=== PATIENT | male | born 1940 | race Caucasian/White ===

== ENCOUNTER 2016-07-14 10:00 | Inpatient (IN) | payer MEDICARE, OTHER ==
[2016-07-14] MEDS ORDERED: ONDANSETRON 4 MG/2 ML VIAL IVP ONE (10:32)
--- NOTE | 2016-07-14 10:37 | EDPHY ---
H & P Stated Complaint: Scheduled for back surgery; this amorning has numbness/ tingling toes L>R Source: Patient, Old records - Personal History Current Tetanus Diphtheria and Acellular Pertussis (TDAP): Yes - Medical/Surgical History Other PMH: chronic back pain - Social History Smoking Status: Former smoker HPI/ROS: CHIEF COMPLAINT: Increasing back pain, lower extremity weakness and paresthesia HISTORY OF PRESENT ILLNESS: Patient complains of worsening low back pain and left lower extremity numbness and tingling. This started yesterday. This is an exacerbation of ongoing low back pain. He has had a history of lumbar radiculopathy on the L2-L3 level. This has been going on for awhile. He is scheduled for surgery on July [address] Muniz for laminectomy and fusion. He has had no saddle anesthesia. He has had no incontinence of bowel or bladder. No retention of bowel or bladder. No motor weakness of the lower extremities. No trauma or new injuries. This happened suddenly last night. It has been constant, severe pain. No position of comfort. Some improvement with his ongoing pain medication. No fever or chills. No recent illness. No recent spinal injections. No history of IV drug abuse. No other associated complaints or modifying factors. REVIEW OF SYSTEMS: Ten systems reviewed and are negative unless otherwise noted in the HPI PERTINENT MEDICAL HISTORY: EXAMINATION General Appearance: Alert, no distress Head: normocephalic, atraumatic Eyes: Pupils equal and round, no conjunctival pallor or injection ENT, Mouth: Mucous membranes moist Neck: Normal inspection, supple, non-tender Respiratory: Lungs are clear to auscultation. No wheezing, rhonchi or crackles. Cardiovascular: Regular rate and rhythm. No murmur. Pulses intact distally symmetrically. Gastrointestinal: Abdomen is soft and nontender Back: Tenderness of the lumbar vertebrae. Patient reports this is baseline. There is no crepitus, step-off or deformity. No tenderness of the cervical thoracic spine. There is a well-healed midline surgical incision lumbar region. Neurological: GCS 15. A&O, nonfocal, antalgic gait. Strength is 5/5 in the lower extremity joints. Strength is 4/5 in the left ankle. Normal proprioception of the great toes. Reports paresthesia of the dorsum of the left foot and of the lesser toes. Skin: Warm and dry, no rash no petechiae purpura. No ecchymosis. Extremities: Nontender, no pedal edema Psychiatric: Mood and affect normal DIFFERENTIAL DIAGNOSES: Including but not limited to lumbar radiculopathy, acute disc bulge, acute disc herniation, acute cord compression, cauda equina MDM: 10:25 a.m. Lumbar radiculopathy with acute sensory changes in the left lower extremity. He now has increasing paresthesia and intermittent anesthesia of the left lesser toes. He does have 4/5 strength in the left ankle, which is 5/5 on the right. MRI done on June 27. Laminectomy and fusion scheduled for July 25. 10:35 a.m. I discussed the case with Dr. Muniz. I informed the physician of the patient' s complaints and examination. Dr. Muniz has requested MRI of the lumbar spine without contrast. He would like to be contacted with results. No further recommendations at this time. 12:[address] Sosa of the MRI findings. There is a new disc extrusion in the left neural foramen as dictated. There is also a new synovial cyst on the right facet with some compression of the conus. These do clinically correlate with patient's symptoms. Dr. Penaloza as discussed the case with Dr. Muniz. Dr. Muniz has agreed to admit the patient for further care. Patient is admitted in stable condition, NPO. SUPERVISION: Patient was evaluated in conjunction with the supervising physician. Please see their note for details. (Yan Lewis) Constitutional: Initial Vital Signs Temperature (C) 36.7 C 07/14/16 10:00 Heart Rate 64 07/14/16 10:00 Respiratory Rate 18 07/14/16 10:00 Blood Pressure 143/97 H 07/14/16 10:00 O2 Sat (%) 93 07/14/16 10:00 O2 Delivery Mode Room Air Allergies/Adverse Reactions: codeine Allergy (Mild, Verified 07/14/16 10:07) nausea Home Medications: Medication Instructions Recorded Pravastatin Sodium [Pravachol] 80 mg PO HS 07/11/16 Aspirin [Aspirin 81mg (*)] 81 mg PO DAILY 07/14/16 [place]-3 Fatty Acids [Fish Oil 1000 1,000 mg PO DAILY 07/14/16 mg (*)] Medical Decision Making - Diagnostics Imaging Results: Imaging Impressions Lumbar Spine MRI 07/14/16 10:34 Impression: 1. Left posterior lateral disk extrusion extending superiorly into the neuroforamen at L1-L2 that may account for the patient's symptoms. 2. Disk bulges with facet hypertrophy and ligamentum flavum hypertrophy at L1 to , L2-L3, and L3-L4 as detailed above. 3. Development of small synovial cyst associated with the right facet at L1-L2 and also contributes to spinal stenosis with compression at the level of the conus. Findings discussed with Yan Lewis PAC at 12:14 hour, 07/14/2016. Other Provider: PHYSICIAN DOCUMENTATION: The patient was evaluated and managed by the Physician Traffic Chief and myself. I have reviewed the chart and agree with the findings and plan of care as documented. In addition, I examined the patient myself at 1140. History confirmed as worsening left leg numbness today. 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 Sensation intact but decreased in the left lateral foot, toes downgoing bilaterally. Discussed with Dr. Noah Muniz at 11:38 a.m. will look at the patient's MRI, the patient is informed that we are awaiting his neurosurgeons recommendations. 1220: Discussed with Dr. Muniz review the MRI, discussed with the patient. He is increasingly symptomatic and plan is to admit him for IV steroids and pain control, neurosurgical evaluation. Seen by Sabra VALLES and Dr. Muniz personally in the ED for admission. I am the secondary supervising physician. (Peter Penaloza) - Data Points Laboratory Results: Laboratory Results 07/14/16 10:47 07/14/16 10:47 07/14/16 07/14/16 07/14/16 10:47 10:47 10:47 WBC 3.75 10^3/uL L 10^3/uL (3.80-9.50) RBC 5.35 10^6/uL 10^6/uL (4.40-6.38) Hgb 15.8 g/dL g/dL (13.7-17.5) Hct 47.9 % % (40.0-51.0) MCV 89.5 fL fL (81.5-99.8) MCH 29.5 pg pg (27.9-34.1) MCHC 33.0 g/dL g/dL (32.4-36.7) RDW 13.0 % % (11.5-15.2) Plt Count 153 10^3/uL 10^3/uL (150-400) MPV 11.6 fL fL (8.7-11.7) Neut % (Auto) 55.5 % % (39.3-74.2) Lymph % (Auto) 30.9 % % (15.0-45.0) Kimball % (Auto) 9.6 % % (4.5-13.0) Eos % (Auto) 3.2 % % (0.6-7.6) Baso % (Auto) 0.8 % % (0.3-1.7) Nucleat RBC Rel Count 0.0 % % (0.0-0.2) Absolute Neuts (auto) 2.08 10^3/uL 10^3/uL (1.70-6.50) Absolute Lymphs (auto) 1.16 10^3/uL 10^3/uL (1.00-3.00) Absolute Monos (auto) 0.36 10^3/uL 10^3/uL (0.30-0.80) Absolute Eos (auto) 0.12 10^3/uL 10^3/uL (0.03-0.40) Absolute Basos (auto) 0.03 10^3/uL 10^3/uL (0.02-0.10) Absolute Nucleated RBC 0.00 10^3/uL 10^3/uL (0-0.01) Immature Gran % 0.0 % % (0.0-1.1) Immature Gran # 0.00 10^3/uL 10^3/uL (0.00-0.10) PT 13.9 SEC SEC (12.0-15.0) INR 1.08 (0.83-1.16) APTT 28.1 SEC SEC (23.0-38.0) Sodium 145 mEq/L H mEq/L (134-144) Potassium 4.2 mEq/L mEq/L (3.5-5.2) Chloride 108 mEq/L mEq/L (97-110) Carbon Dioxide 26 mEq/l mEq/l (22-31) Anion Gap 11 mEq/L mEq/L (8-16) BUN 17 mg/dL mg/dL (7-23) Creatinine 1.0 mg/dL mg/dL (0.7-1.3) Estimated GFR > 60 Glucose 85 mg/dL mg/dL (70-100) Calcium 10.3 mg/dL mg/dL (8.5-10.4) Total Bilirubin 1.1 mg/dL mg/dL (0.1-1.4) AST 28 IU/L IU/L (17-59) ALT 41 IU/L IU/L (21-72) Alkaline Phosphatase 67 IU/L IU/L (38-126) Total Protein 6.5 g/dL g/dL (6.3-8.2) Albumin 4.1 g/dL g/dL (3.5-5.0) Medications Given: Discontinued Medications Dexamethasone (Decadron Injection) 10 mg IVP EDNOW ONE Stop: 07/14/16 12:21 Last Admin: 07/14/16 12:47 Dose: 10 mg Hydromorphone HCl (Dilaudid) 0.5 mg IVP EDNOW ONE Stop: 07/14/16 11:22 Last Admin: 07/14/16 11:23 Dose: 0.5 mg Hydromorphone HCl (Dilaudid) 0.5 mg IVP EDNOW ONE Stop: 07/14/16 11:53 Last Admin: 07/14/16 11:53 Dose: 0.5 mg Hydromorphone HCl (Dilaudid) 0.5 mg IVP EDNOW ONE Stop: 07/14/16 12:20 Last Admin: 07/14/16 12:47 Dose: 0.5 mg Morphine Sulfate (Morphine) 4 mg IVP EDNOW ONE Stop: 07/14/16 10:33 Last Admin: 07/14/16 10:48 Dose: 4 mg Ondansetron HCl (Zofran) 4 mg IVP EDNOW ONE Stop: 07/14/16 10:33 Last Admin: 07/14/16 10:48 Dose: 4 mg Departure - Departure Disposition: [facility] Acute Clinical Impression: Lumbar radicular pain, L1-L2 disc lateral herniation Condition: Good
[2016-07-14] MEDS ORDERED: HYDROmorphONE/DILAUDID 1 MG/ML SYR ONE (11:05)
[2016-07-14] MEDS ORDERED: HYDROmorphONE/DILAUDID 1 MG/ML SYR IVP ONE ×3 (11:21→12:19)
[2016-07-14] MEDS ORDERED: DEXAMETHASONE 10 MG/ML VIAL IVP ONE (12:20)
[2016-07-14] MEDS ORDERED: HYDROmorphONE/DILAUDID 6 MG/30 ML PCA IV PRN (12:45)
[2016-07-14] MEDS ORDERED: diphenhydrAMINE 25 MG CAP PO PRN (12:45)
[2016-07-14] MEDS ORDERED: NALOXONE HCL 0.4 MG/ML INJ IVP PRN (12:45)
[2016-07-14] MEDS ORDERED: ZOLPIDEM TARTRATE 5 MG TAB PO PRN (12:45)
[2016-07-14] MEDS ORDERED: MAGNESIUM HYDROXIDE 30 ML UDCUP PO PRN (12:45)
[2016-07-14] MEDS ORDERED: NS W/ 20 KCl/L 1,000 ML IV SCH (12:45)
[2016-07-14] MEDS ORDERED: METOCLOPRAMIDE 10 MG/2 ML VIAL IVP PRN (12:45)
[2016-07-14] MEDS ORDERED: ONDANSETRON DISINTEGRATING 4 MG TAB PO PRN (12:45)
[2016-07-14] MEDS ORDERED: oxyCODONE IR 5 MG TAB PO PRN (12:45)
[2016-07-14] MEDS ORDERED: LACTULOSE 20 GM/30 ML UDCUP PO PRN (12:45)
[2016-07-14] MEDS ORDERED: ONDANSETRON 4 MG/2 ML VIAL IVP PRN ×2 (12:45)
[2016-07-14] MEDS ORDERED: HYDROmorphONE/DILAUDID 1 MG/ML SYR IVP PRN (12:45)
[2016-07-14] MEDS ORDERED: POLYETHYLENE GLYCOL 3350 17 GM PKT PO PRN (12:45)
[2016-07-14] MEDS ORDERED: ACETAMINOPHEN 325 MG TAB PO PRN (12:45)
[2016-07-14] MEDS ORDERED: BISACODYL 10 MG SUPP PR PRN (12:45)
[2016-07-14 13:00] LABS: ADD DIFF? NO; ADD MORPH? NO; ADD SCAN? NO; ATYPICAL LYMPHOCYTE FLAG 30 (0-99); FRAGMENT RBC FLAG 0 (0-99); HEMATOCRIT 47.9 % (40.0-51.0); HEMOGLOBIN 15.8 g/dL (13.7-17.5); LEFT SHIFT FLG 40 (0-99); LIPEMIA HEMOLYSIS FLAG 80 (0-99); MEAN CELL HEMOGLOBIN 29.5 pg (27.9-34.1); MEAN CELL VOLUME 89.5 fL (81.5-99.8); MEAN PLATELET VOLUME 11.6 fL (8.7-11.7); PLATELET CLUMPS FLAG 10 (0-99); PLATELET COUNT 153 10^3/uL (150-400); RED BLOOD CELL COUNT 5.35 10^6/uL (4.40-6.38)
[2016-07-14 13:03] LABS: ALANINE AMINOTRANSFERASE 41 IU/L (21-72); ALBUMIN 4.1 g/dL (3.5-5.0); ALKALINE PHOSPHATASE 67 IU/L (38-126); ANION GAP 11 mEq/L (8-16); ASPARTATE AMINOTRANSFERASE 28 IU/L (17-59); BILIRUBIN,TOTAL 1.1 mg/dL (0.1-1.4); CALCIUM 10.3 mg/dL (8.5-10.4); CARBON DIOXIDE 26 mEq/l (22-31); CHLORIDE 108 mEq/L (97-110); GLOMERULAR FILTRATION RATE > 60; GLUCOSE 85 mg/dL (70-100); POTASSIUM 4.2 mEq/L (3.5-5.2); SODIUM 145 mEq/L (134-144); TOTAL PROTEIN 6.5 g/dL (6.3-8.2)
[2016-07-14 13:15] LABS: INR 1.08 (0.83-1.16); PROTIME(PATIENT) 13.9 SEC (12.0-15.0)
[2016-07-14 13:16] LABS: APTT 28.1 SEC (23.0-38.0)
--- NOTE | 2016-07-14 13:42 | GHP ---
[f rep st] HISTORY AND PHYSICAL DATE OF ADMISSION: 07/14/2016 CHIEF COMPLAINT: Increasing back pain, left lower extremity weakness and paresthesia. HISTORY OF PRESENT ILLNESS: The patient is a 75-year-old gentleman, who complains of worsening lowe r back pain and left lower extremity numbness and tingling. This worsened really yesterday. This i s an exacerbation of ongoing lower back pain. He has a history of a lumbar radiculopathy on the L2- 3 level. This been going on for a while. He is scheduled with Dr. 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 He has a history of a TLIF at L4-5, L5-S1 with Dr. Noel in 1989. He has had worsening symptoms, and he came to the emergency departm ent for evaluation. He has had no incontinence of bowel or bladder. No retention of his bowel or b ladder. No motor weakness in the lower extremities. No recent fall injury or trauma. This came on suddenly last night. Pain is described as constant, severe in nature, and really no position of co mfort is good for him. They tried giving him some pain medication here in ER numerous occasions, an d this was unsuccessful. Recommendations for admission were given to the patient. Patient was seen and evaluated in the emergency department, both by myself and Dr. Muniz, at 12:30 p.m. on 07/14/2016 . The patient has had no recent spinal injections. No other complaints such as fevers or chills. No chest pain. No shortness of breath. No abdominal pain. No complaints or changes. No saddle numbness. REVIEW OF SYSTEMS: A 10-point review of systems reviewed and is negative unless otherwise noted in the HPI. PAST MEDICAL HISTORY: Significant for: 1. High cholesterol. 2. 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 PAST SURGICAL HISTORY: 1. Fusion of left ankle. 2. Removal of left kidney. 3. Bilateral total shoulder replacements. 4. Back surgery with an L4-5, L5-S1 [place] [address] Ball. ALLERGY: Codeine. MEDICATIONS: Patient takes: 1. Fish oil. 2. Baby aspirin, last taken yesterday. 3. Pravastatin. SOCIAL HISTORY: Patient is retired. He is . He has 2 children. He denies any excessive al cohol use, does drink occasionally. No drug use, and he is a nonsmoker. FAMILY HISTORY: Noncontributory. IMMUNIZATIONS: Reported up to date. TRAVEL: No recent travel. PHYSICAL EXAMINATION: GENERAL: This is an awake, alert, oriented male, in no acute distress. He i s able to follow commands appropriately. VITAL SIGNS: Most recent, blood pressure 130/79, MAP of 9 6, 50 heart rate, 14 respirations, 96% on 2 L with temperature of 36.6. HEENT: Head normocephalic, atraumatic. Pupils are equal, round, reactive to light. EOMs intact. Full visual calvillo by confr ontation. Ears are patent. Nose is patent. NECK: Soft, supple. No midline tenderness. Full ran ge of motion in flexion, extension, lateral bending, rotation. RESPIRATORY/CARDIAC: No rales, rhon chi wheeze, or rub. ABDOMEN: Soft, nontender. No peritoneal signs. /RECTAL: Deferred. NEURO: Patient is awake, alert, oriented to name, place, location, date, time, and situation. Memory is intact to immediate, past, and current events. Speech: No aphasia, dysarthria, or dysphonia. Cran ial nerves 2-12 grossly intact. Motor: Patient had 5/5 strength in all muscle groups of the bilate ral upper and lower extremities to include deltoids, biceps, triceps, brachioradialis, wrist flexors and extensors, environmental safety specialist intrinsic fingers, iliopsoas, quadriceps, hamstring, plantar flexion, dorsiflex ion, EHL testing. Sensation is grossly intact to light touch throughout all dermatome distributions , upper and lower extremities. Negative straight leg raise. Negative JEAN MARIE test. Reflexes of tanna ps, triceps, brachioradialis, knee jerk, and ankle jerk 2+/4. Toes are downgoing bilaterally. Kavitha shook's negative. Babinski negative. No clonus. LABORATORY TESTS: Obtained are pending, including a CBC, chemistry, PT, and coags, as well as EKG a nd chest x-ray. MEDICAL DECISION MAKING/DIAGNOSTIC STUDIES: MRI of the lumbar spine, obtained 07/14/2016, shows a lef t posterolateral disk extrusion, extending superiorly in the neural foramen of L1-2; disk bulges and facet hypertrophy, ligamentum flavum hypertrophy of L1-2 through L2-3 and L3-4; development of smal l synovial cyst on the right facet at L1-2. It also contributes to spinal stenosis with compression of the level of the conus. These images were reviewed with the patient, as well as Dr. Muniz. IMPRESSION: 1. Lower back pain with left lower extremity radiculopathy exacerbation. 2. Pending surgery on 07/25/2016, with Dr. Muniz. 3. Adjacent segment disease, L1-2, L2-3, L3-4. DISCUSSION: The patient is a 75-year-old gentleman who will be admitted to our service for this low er back pain exacerbation and radiculopathy. He has an MRI that shows adjacent segment disease, clayton lly at L1-2, L2-3, and L3-4. He was scheduled for surgery on July 25, and the pain worsened. He c raven into the emergency department, was seen and evaluated in the emergency department, both by darrin triaan and Dr. Muniz, and will be admitted to our service. We will attempt to move his scheduled surger y up to a sooner time. Orders were placed in the computer. We reviewed with him the risks of surge ry, the need for further surgery, and he wishes to proceed. We will review some consents with him o n his stay here prior to scheduled surgery time, which is to be determined. All questions and moises rns were answered. Patient understands and agrees. /[id number]/MODL
--- NOTE | 2016-07-14 16:01 | CPEKG ---
Heart Rate: 48 RR Interval: 1250 P-R Interval: 168 QRSD Interval: 92 QT Interval: 484 QTC Interval: 433 P Cheney: 48 QRS Cheney: -6 T Wave Cheney: 58 EKG Severity - ABNORMAL ECG - EKG Impression: SINUS BRADYCARDIA EKG Impression: LOW VOLTAGE IN FRONTAL LEADS EKG Impression: CONSIDER ANTEROSEPTAL INFARCT Electronically Signed By: Rg Becerra 15-Jul-2016 07:17:02
[2016-07-14] MEDS: HYDROCODONE/APAP 5/325 TAB PO PRN (18:32)
[2016-07-14] MEDS ORDERED: PRAVASTATIN SODIUM 40 MG TAB PO SCH (21:00)
[2016-07-14] MEDS ORDERED: NON-FORMULARY NEW DRUG (Pravastatin Sodium [Pravachol] 80 MG) PO SCH (21:00)
[2016-07-14] MEDS: SENNOSIDES/DOCUSATE SODIUM TAB PO SCH (21:18)
[2016-07-15] MEDS: HYDROCODONE/APAP 5/325 TAB PO PRN ×2 (01:28→08:48)
[2016-07-15 03:33] VITALS: O2SAT 94
--- NOTE | 2016-07-15 06:52 | NEUSURGPN ---
Assessment/Plan: Assessment: 75 yo male that was admitted to us for worsening back and leg pain. Pt is scheduled for lumbar fusion surgery on 07/[address] Muniz Plan: -Lumbar stenosis: Pt with expected lower back pain and leg pain that is better after the steroids given and pain medications -will walk patient this am and if does well we will dc home later today with plan for follow up surgery as scheduled on 07/25 -PT/OT -rxs on chart -pt understands and agrees -pt seen by Dr Muniz -call with any questions or concerns -pt can return sooner if needed Subjective: Awake and alert. Sitting on bed. Walking in prieto. No lugo/neck/chest/abd or gu complaints. No f/c/n/v/d. Objective: AAO x 3, PERRLA/EOMI no droop walking well CN 2-12 grossly intact +lt touch 07/15 BUE/BLE = Neuro Check Frequency: per routine Urinary Catheter in Place: No - Physician Discussed Patient with : Flavio Patient Seen by : Flavio Neurosurgery Physical Exam - Vitals, I&O, Labs I and O 07/14/16 07/15/16 07/16/16 05:59 05:59 05:59 Intake Total 1675 Balance 1675 Weight 61.235 kg Intake: Oral (ml) 450 IV Infused (ml) 1225 NS W/ 20 KCl/L 1,000 ml @ 225 75 mls/hr IV CONT EFREN Rx #:[id number] Other: Intake Quantity Yes Sufficient Number of Voids Toilet 1 Vital Signs Temp Pulse Resp BP Pulse Ox 36.5 C 46 L 16 115/57 L 94 07/15/16 03:32 07/15/16 03:32 07/14/16 23:43 07/15/16 03:32 07/15/16 03:32 ICD10 Worksheet Patient Problems: Problems Problem Status Onset Lumbar radicular pain Acute
[2016-07-15] MEDS ORDERED: METHOCARBAMOL 750 MG TAB PO PRN (06:57)
[2016-07-15 07:47] VITALS: BP 106/56; PULSE 52; RESP 14; TEMP 97.9
[2016-07-15] MEDS: SENNOSIDES/DOCUSATE SODIUM TAB PO SCH (09:38)
== END 2016-07-15 10:28 | disposition home or self-care (01) | DRG 552 ==
LOC: F3N 13:14
PROVIDERS: ADMIT Neurological Surgery; ATTEND Neurological Surgery
DX: M51.16 Intervertebral disc disorders with radiculopathy, lumbar region (principal); M48.06 Spinal stenosis, lumbar region; Z98.1 Arthrodesis status
CPT/HCPCS: 96374; J1170; J2405; J2765

== ENCOUNTER 2016-07-25 08:14 | Inpatient (IN) | payer MEDICARE, OTHER ==
[~2016-07-25 08:14] MED LIST: BACITRACIN 50,000 UNITS/10 ML SYR IRR ONE; BUPIVACAINE/EPI 0.25% 30 ML SDV ONE; CHLORHEXIDINE GLUC HIBICLENS 118 ML BTL TP ONE; THROMBIN (BOVINE) 20,000 UNIT VIAL TP ONE; ceFAZolin 2 GM/DEXTROSE 100 ML IV ONE
[2016-07-25] MEDS ORDERED: LIDOCAINE 1% 2 ML INJ ONE (08:27)
[2016-07-25] MEDS ORDERED: TEMAZEPAM 15 MG CAP PO PRN (10:16)
[2016-07-25] MEDS ORDERED: HYDROmorphONE/DILAUDID 1 MG/ML SYR IVP PRN (10:16)
[2016-07-25] MEDS ORDERED: NALOXONE HCL 0.4 MG/ML INJ IVP PRN (10:16)
[2016-07-25] MEDS ORDERED: ONDANSETRON 4 MG/2 ML VIAL IVP PRN (10:16)
[2016-07-25] MEDS ORDERED: DIAZEPAM 10 MG/2 ML SYR IVP PRN (10:16)
[2016-07-25] MEDS ORDERED: diphenhydrAMINE 25 MG CAP PO PRN (10:16)
[2016-07-25] MEDS ORDERED: LACTULOSE 20 GM/30 ML UDCUP PO PRN (10:16)
[2016-07-25] MEDS ORDERED: MAGNESIUM HYDROXIDE 30 ML UDCUP PO PRN (10:16)
[2016-07-25] MEDS ORDERED: ACETAMINOPHEN 325 MG TAB PO PRN (10:16)
[2016-07-25] MEDS ORDERED: ONDANSETRON DISINTEGRATING 4 MG TAB PO PRN (10:16)
[2016-07-25] MEDS ORDERED: HYDROmorphONE/DILAUDID 6 MG/30 ML PCA IV PRN (10:16)
[2016-07-25] MEDS ORDERED: MIDAZOLAM 2 MG/2 ML VIAL ONE (10:24)
[2016-07-25] MEDS ORDERED: ONDANSETRON 4 MG/2 ML VIAL ONE (10:30)
[2016-07-25] MEDS ORDERED: fentaNYL 100 MCG/2 ML INJ ONE ×3 (10:30→17:13)
[2016-07-25] MEDS ORDERED: ROCURONIUM 50 MG/5 ML VIAL ONE ×2 (10:30→14:03)
[2016-07-25] MEDS ORDERED: PROPOFOL 200 MG/20 ML VIAL ONE (10:30)
[2016-07-25] MEDS ORDERED: DEXAMETHASONE 4 MG/ML VIAL ONE ×3 (10:33)
[2016-07-25] MEDS ORDERED: PHENYLEPHRINE HCL 100 MCG/ML SYR ONE ×2 (10:46→12:16)
[2016-07-25] MEDS ORDERED: TRANEXAMIC ACID 950 MG in NS 100 ML IV ONE (11:00)
[2016-07-25] MEDS ORDERED: REMIFENTANIL HCL 1 MG VIAL ONE ×2 (12:17→15:39)
[2016-07-25] MEDS ORDERED: PROPOFOL/EMULSION 500 MG/50 ML BOTTLE IV ONE ×2 (12:18→15:40)
[2016-07-25] MEDS ORDERED: epHEDrine SULFATE 10 MG/ML SYR ONE ×3 (12:20→12:48)
[2016-07-25] MEDS ORDERED: BACITRACIN 50,000 UNITS/10 ML SYR IRR ONE (13:41)
[2016-07-25] MEDS ORDERED: PHENYLEPHRINE 10 MG/ML SDV ONE (14:32)
[2016-07-25] MEDS ORDERED: ceFAZolin 1 GM VIAL ONE (14:50)
[2016-07-25] MEDS ORDERED: DIAZEPAM 10 MG/2 ML SYR ONE (15:52)
--- NOTE | 2016-07-25 16:55 | SOAPPROG ---
SOAP Progress Note Assessment/Plan: Post Op Check: S: Awake and alert. NAD. Pt with expected lower back pain O: AFVSS/PERRLA/EOMI no droop CN 2-12 grossly intact +lt touch 5/5 BUE/BLE = CDI FRANCK in place A/P: 75 yo male that is s/p TLIF at L1-L4 with PSF L1-L5 -call with any questions or concerns -take medications as directed -pt seen by Dr Muniz as well -brace when out of bed 07/25/16 16:52 ICD10 Worksheet Patient Problems: Problems Problem Status Onset Arthrodesis status Acute Lumbago Acute Lumbar radicular pain Acute - ICD10 Problem Qualifiers (1) Lumbago Qualifiers: Chronicity: C Back pain laterality: B Sciatica presence: S Sciatica laterality: S (2) Arthrodesis status (3) Lumbar radicular pain
[2016-07-25] MEDS ORDERED: HYDROmorphONE/DILAUDID 1 MG/ML SYR ONE (17:58)
[2016-07-25] MEDS: DIAZEPAM 5 MG TAB PO PRN (20:57)
[2016-07-25] MEDS: morphINE SR 15 MG TAB PO SCH (20:57)
[2016-07-25] MEDS: PRAVASTATIN SODIUM 40 MG TAB PO SCH (20:57)
[2016-07-25] MEDS: SENNOSIDES/DOCUSATE SODIUM TAB PO SCH (20:58)
[2016-07-25] MEDS: NS W/ 20 KCl/L 1,000 ML IV SCH (20:59)
[2016-07-25] MEDS: FAMOTIDINE 20 MG/NACL 50 ML IV SCH (20:59)
[2016-07-25] MEDS ORDERED: NON-FORMULARY NEW DRUG (Pravastatin Sodium [Pravachol] 80 MG) PO SCH (21:00)
[2016-07-25] MEDS: HYDROCODONE/APAP 10/325 TAB PO PRN ×2 (22:07→23:33)
[2016-07-26] MEDS: HYDROCODONE/APAP 10/325 TAB PO PRN ×2 (04:45→16:38)
[2016-07-26] MEDS: DIAZEPAM 5 MG TAB PO PRN ×3 (04:45→23:00)
[2016-07-26 05:50] LABS: ANION GAP 6 mEq/L (8-16); CALCIUM 8.9 mg/dL (8.5-10.4); CARBON DIOXIDE 24 mEq/l (22-31); CHLORIDE 108 mEq/L (97-110); CREATININE 0.9 mg/dL (0.7-1.3); GLOMERULAR FILTRATION RATE > 60; GLUCOSE 117 mg/dL (70-100); POTASSIUM 4.6 mEq/L (3.5-5.2); SODIUM 138 mEq/L (134-144)
[2016-07-26 06:22] LABS: % IMMATURE GRANULYOCYTES 0.7 % (0.0-1.1); ABSOLUTE IMMATURE GRANULOCYTES 0.07 10^3/uL (0.00-0.10); ADD DIFF? NO; ADD MORPH? NO; ADD SCAN? NO; ATYPICAL LYMPHOCYTE FLAG 0 (0-99); FRAGMENT RBC FLAG 0 (0-99); HEMATOCRIT 33.3 % (40.0-51.0); HEMOGLOBIN 11.2 g/dL (13.7-17.5); LEFT SHIFT FLG 20 (0-99); LIPEMIA HEMOLYSIS FLAG 80 (0-99); MEAN CELL HEMOGLOBIN 30.9 pg (27.9-34.1); MEAN CELL HEMOGLOBIN CONCENTR. 33.6 g/dL (32.4-36.7); MEAN CELL VOLUME 91.7 fL (81.5-99.8); MEAN PLATELET VOLUME 12.2 fL (8.7-11.7); PLATELET CLUMPS FLAG 0 (0-99); PLATELET COUNT 113 10^3/uL (150-400); RED BLOOD CELL COUNT 3.63 10^6/uL (4.40-6.38)
--- NOTE | 2016-07-26 07:27 | GOP ---
[f rep st] OPERATIVE REPORT DATE OF OPERATION: 07/25/2016 SURGEON: Agapito Muniz MD ENVIRONMENTAL AIR SPECIALIST: Rangel Montaño PA-C. ANESTHESIA: General. PREOPERATIVE DIAGNOSIS: Adjacent segment disease, L1-2, L2-3, L3-4. Prior lumbar fusion at L4-5, L 5-S1, spinal stenosis, lumbar disk herniation, lumbar spondylosis, lumbar degenerative disk disease. POSTOPERATIVE DIAGNOSIS: Adjacent segment disease, L1-2, L2-3, L3-4. Prior lumbar fusion at L4-5, L5-S1, spinal stenosis, lumbar disk herniation, lumbar spondylosis, lumbar degenerative disk disease . PROCEDURE PERFORMED: Posterior lateral and intervertebral arthrodesis at L1-2, L2-3, L3-4 (49690, 88239 x2), removal of p osterior nonsegmental hardware across a single interspace with removal of a transfacet L4-5 screw (2 [phone]), same-incision bone graft harvest, spinal stereotaxy, posterior-lateral hardware that is segme ntal at L2, L1, L3, L4 and L5, placement of biomechanical intervertebral device L1-2, L2-3, L3-4 (22 859 x3 ), microscope. FINDINGS: ESTIMATED BLOOD LOSS: 350 cc. INDICATIONS: The patient is a 75-year-old, who underwent a successful ALIF and transfacet fusion by an outside surgeon many years ago. He did appear to have solid bony union and he had developed sharron e spinal stenosis at L3-4 above his prior fusion as well as severe stenosis at L2-3 above the fusion . He also had a broad base disc prolapse at L1-2 as well as a left-sided disc protrusion there and he got acutely worse a few weeks ago and came in and was found to have a rostrally extruded L1-2 dis c on the left compressing the left L1 root. This is the likely source of his acute exacerbation. H alexandru also had been having some right-sided leg pain but this had gone away over the last several weeks as he was having very severe left-sided pain. On the right side at L1-2 there is a synovial cyst. There is bilateral stenosis at L2-3 and bilateral stenosis at C3-4 but the left was worse than the r ight. I suggested decompression and fusion although I would do more of the work on the left than on the right. It is my intention to do bilateral decompressions at L1-2, L2-3 and a left-sided kolton-d ecompression at L3-4. The risk of continued symptoms, nerve injury and spinal fluid leak was discus sed. He is a thin man. He knew the risk of screw and hardware malposition, malfunction as well as the possible need for future surgery at adjacent segments. DESCRIPTION OF PROCEDURE: The patient was taken to the operating room, placed in the supine positio n. General anesthesia was begun. He was flipped prone onto the Daniel table. Care was taken to p ad all points of contact. His back was sterilely prepped and draped in the usual fashion. A locali [facility] x-ray was taken. He had a prior incision that measured about 12 cm in length going from the sp inous process of L2 down to the spinous process of S2. This was opened and extended rostrally for a bout 5 cm. We did not open the entire inferior extent of his old incision. The subcutaneous tissue was dissected using Bovie cautery down to the fascia and a subperiosteal dissection was made down t he inferior lamina of T12, the lamina of L1, L2, L3 and L4 was exposed. The posterolateral bone mas s at L4-5 was also exposed. We shot a localizing x-rays. We denuded the facets bilaterally at L2-3 , 3-4 and L1-2. We preserved the T12-L1 facet joint. We performed an O-arm spin, and using [facility] stereotaxy, we placed pedicle screws bilaterally at L1, L2, L3 and L4. We put a left-kayla ed screw at L5 to help anchor the construct and on the right-hand side, we were blocked by the left- sided screw transfacet screw coming in from the left, going to the right at L5. The screw was still in place and we had not elected to remove it. At this point, I put a 7.5 x 60 mm screw on the righ t at L4 and I felt that this would suffice at the inferior end of his construct. We stimulated all the screws. They all stimulated at acceptable levels. We took 120 mm oanh, pre-bent oanh put on the left. We captured all of these tulips and we used 200 mm oanh on the right. An O-arm spin had been made and there was solid bony union at L4-5. All the screws were in excellent position. We distrac lester between L1-2, 2-3, 3-4 and final tightened the tulips according to company specifications. We t hen cleaned off all soft tissue to bone at L1, L2, L3, L4 and L5 and decorticated the transverse pro cesses at each of these levels. We harvested the inferior L1, all of L2, all of L3, and all of L4 s pinous process for autologous grafting purposes. We had a large amount of bony autograft. We then drilled bilateral laminas at L1-2, 2-3 and a left kolton lamina at L3-4, and harvested this bone for a utologous grafting purposes. We brought in the microscope and under the scope, performed a left L3- 4 hemilaminectomy a bilateral lamina at L2-3 and a left bilateral laminae at L1-2. At L1-2, we swep t the thecal sac just slightly medially. The conus was located at this level and there was really v callie minimal retraction at this level and there was a large posterior lateral disc herniation present there as well as a rostral extrusion. We had delivered a large amount of free fragment out from un derneath the L1 nerve root, way out in the neural foramen and all way up to the L1 pedicle. This de compressed the exiting L1 nerve root and the traversing L2 nerve root quite nicely. We followed thi s nerve root inferiorly down into its foramen at L2-3. The foramen at L2-3 was very tight. We kat alice that facet joint completely and decompressed the exiting L2 root. We also had a bilateral decom pression at L2-3. At L3-4, we performed a left hemidecompression at L3-4 for the left lateral porti on of the thecal sac and the exiting L3 nerve root. We then began at L1-2 where we removed the disk and the cartilaginous endplates and roughened the subchondral bone to create arthrodesis; there, ag ain being very respectful of the thecal sac at that level. At L2-3, we were able to retract the the marcelo sac medially and L3-4 we did likewise. We removed the discs at both of those 2 additional level s and removed the cartilaginous endplates and roughened the subchondral bone to create arthrodesis. We chose using a sizer 7 mm implant at L1-2 and at L2-3, and an 8 mm implant at L3-4 and they were inserted according to company specification under fluoroscopic guidance. We placed bone morphogenic protein and bone autograft into the disk spaces followed by the device. The devices were then expa nded under fluoroscopic guidance. I was very happy with their placement. We placed bone posterolat erally bilaterally at L1-2, 2-3, 3-4 and we irrigated throughout the surgery with large amounts of a ntibiotic saline. A crosslink was applied. A subfascial drain was placed. Inferiorly, the sacral spinous processes at L5 and S1 spinous processes were protruding up and creating pressure on the tyron y thin body habitus and the skin of the patient as well as the fascia. We then took a Leksell and r emoved these so that the closure would not sit under such direct pressure from these bony prominence s. We then closed the fascia with interrupted Vicryl sutures and closed Varinder fascia with interrup lester Vicryl sutures. We used interrupted Vicryl sutures in the skin and placed Steri-Strips over the se. The patient was reversed from anesthesia, extubated, and transferred to the recovery room in st able condition. There were no complications. COMPLICATIONS: None. /[id number]/MODL
[2016-07-26] MEDS: FAMOTIDINE 20 MG/NACL 50 ML IV SCH (08:45)
[2016-07-26] MEDS: SENNOSIDES/DOCUSATE SODIUM TAB PO SCH ×2 (08:47→20:48)
[2016-07-26] MEDS: morphINE SR 15 MG TAB PO SCH ×2 (08:47→20:48)
[2016-07-26] MEDS: POLYETHYLENE GLYCOL 3350 17 GM PKT PO PRN (08:47)
--- NOTE | 2016-07-26 08:56 | NEUSURGPN ---
Date of Surgery: 07/25/16 Post Op Day: 1 Assessment/Plan: Assesment: 75 yo male that is s/p TLIF at L1-L4 with PSF L1-L5 POD #1 Plan: -s/p TLIF/PSF: Pt with expected lower back pain, legs feel good -PT/OT pending -post op xrays pending -work on pain control with PO meds -call with any questions or concerns -take medications as directed -pt seen by Dr Muniz as well -brace when out of bed 07/25/16 16:52 Subjective: Awake and alert. NAD. Eating/drinking and voiding, No f/c/n/v/d. No lugo/neck/ chest/abd or gu complaints. Objective: AFVSS/PERRLA/EOMI no droop CN 2-12 grossly intact +lt touch 5/5 BUE/BLE = CDI FRANCK in place Neuro Check Frequency: per routine Urinary Catheter in Place: No Catheter Insertion Date: 07/25/16 - Physician Discussed Patient with : Flavio Patient Seen by : Flavio Neurosurgery Physical Exam - Vitals, I&O, Labs I and O 07/25/16 07/26/16 07/27/16 05:59 05:59 05:59 Intake Total 800 150 Output Total 1430 440 Balance -630 -290 Intake: Oral (ml) 150 IV Infused (ml) 800 Famotidine 20 mg/NaCl 50 50 ml @ 200 mls/hr IV Q12HRS EFREN Rx#:[id number] NS W/ 20 KCl/L 1,000 ml @ 700 75 mls/hr IV CONT EFREN Rx #:[id number] ceFAZolin 1 GM/DEXTROSE 50 50 ml @ 200 mls/hr IV Q8HRS EFREN Rx#:[id number] Output: Urine (ml) 1200 400 Catheter 1200 400 Wound Drainage (ml) 230 40 Posterior Back Daniel 230 40 Torres Vital Signs Temp Pulse Resp BP Pulse Ox 36.6 C 61 16 97/59 L 99 07/26/16 08:00 07/26/16 08:00 07/26/16 08:00 07/26/16 08:00 07/26/16 08:00 Laboratory Results 07/26/16 04:49 07/26/16 04:49 ICD10 Worksheet Patient Problems: Problems Problem Status Onset Arthrodesis status Acute Lumbago Acute Lumbar radicular pain Acute - ICD10 Problem Qualifiers (1) Lumbago Qualifiers: Chronicity: C Back pain laterality: B Sciatica presence: S Sciatica laterality: S (2) Arthrodesis status (3) Lumbar radicular pain
[2016-07-26] MEDS: oxyCODONE IR 5 MG TAB PO PRN ×3 (12:17→20:47)
[2016-07-26] MEDS: PRAVASTATIN SODIUM 40 MG TAB PO SCH (20:47)
[2016-07-26] MEDS: FAMOTIDINE 20 MG TAB PO SCH (20:47)
[2016-07-27] MEDS: HYDROCODONE/APAP 10/325 TAB PO PRN ×4 (01:03→20:46)
[2016-07-27] MEDS: oxyCODONE IR 5 MG TAB PO PRN ×3 (02:24→17:57)
[2016-07-27] MEDS: DIAZEPAM 5 MG TAB PO PRN ×2 (05:57→13:25)
--- NOTE | 2016-07-27 07:28 | NEUSURGPN ---
Date of Surgery: 07/25/16 Post Op Day: 2 Assessment/Plan: Assesment: 75 yo male that is s/p TLIF at L1-L4 with PSF L1-L5 POD #2 Plan: -s/p TLIF/PSF: Pt with expected lower back pain, legs feel good -PT/OT-CPM -post op xrays look good -work on pain control with PO meds-pt states doing well with this -dressing changed and FRANCK removed intact -call with any questions or concerns -take medications as directed -pt seen by Dr Muniz as well -brace when out of bed 07/25/16 16:52 Subjective: No new complaints or concerns. No f/c/n/v/d. No lugo/neck/chest/abd or gu complaints. No other issues per RN Objective: AFVSS/PERRLA/EOMI no droop CN 2-12 grossly intact +lt touch 5/5 BUE/BLE = CDI FRANCK removed intact and dressing changed Neuro Check Frequency: per routine Urinary Catheter in Place: No Catheter Insertion Date: 07/25/16 - Physician Discussed Patient with Dr.: Flavio Patient Seen by : Flavio Neurosurgery Physical Exam - Vitals, I&O, Labs I and O 07/26/16 07/27/16 07/28/16 05:59 05:59 05:59 Intake Total 800 1700 Output Total 1430 1155 Balance -630 545 Intake: Oral (ml) 1400 IV Intake (ml) 300 IV Infused (ml) 800 Famotidine 20 mg/NaCl 50 50 ml @ 200 mls/hr IV Q12HRS EFREN Rx#:[id number] NS W/ 20 KCl/L 1,000 ml @ 700 75 mls/hr IV CONT EFREN Rx #:[id number] ceFAZolin 1 GM/DEXTROSE 50 50 ml @ 200 mls/hr IV Q8HRS EFREN Rx#:[id number] Output: Urine (ml) 1200 900 Catheter 1200 400 Toilet 300 Urinal 200 Wound Drainage (ml) 230 255 Posterior Back Daniel 230 255 Torres Other: Intake Quantity Yes Sufficient Number of Voids Catheter 1 Toilet 1 Urinal 1 Vital Signs Temp Pulse Resp BP Pulse Ox 37.2 C 77 16 93/48 L 96 07/27/16 04:00 07/27/16 04:00 07/27/16 04:00 07/27/16 04:00 07/27/16 04:00 Laboratory Results 07/26/16 04:49 07/26/16 04:49 ICD10 Worksheet Patient Problems: Problems Problem Status Onset Arthrodesis status Acute Lumbago Acute Lumbar radicular pain Acute - ICD10 Problem Qualifiers (1) Lumbago Qualifiers: Chronicity: C Back pain laterality: B Sciatica presence: S Sciatica laterality: S (2) Arthrodesis status (3) Lumbar radicular pain
[2016-07-27] MEDS: morphINE SR 15 MG TAB PO SCH ×2 (08:27→20:46)
[2016-07-27] MEDS: FAMOTIDINE 20 MG TAB PO SCH ×2 (08:27→20:46)
[2016-07-27] MEDS: SENNOSIDES/DOCUSATE SODIUM TAB PO SCH ×2 (08:27→20:46)
[2016-07-27] MEDS: POLYETHYLENE GLYCOL 3350 17 GM PKT PO PRN (13:25)
[2016-07-27] MEDS: NS W/ 20 KCl/L 1,000 ML IV SCH (19:36)
[2016-07-27] MEDS: PRAVASTATIN SODIUM 40 MG TAB PO SCH (20:46)
[2016-07-28] MEDS: ENOXAPARIN 40 MG/0.4 ML SYR SC SCH (08:45)
[2016-07-28] MEDS: HYDROCODONE/APAP 10/325 TAB PO PRN ×2 (08:45→18:28)
[2016-07-28] MEDS: morphINE SR 15 MG TAB PO SCH ×2 (08:46→21:16)
[2016-07-28] MEDS: FAMOTIDINE 20 MG TAB PO SCH ×2 (08:47→21:15)
[2016-07-28] MEDS: SENNOSIDES/DOCUSATE SODIUM TAB PO SCH ×2 (08:47→21:14)
--- NOTE | 2016-07-28 09:56 | NEUSURGPN ---
Objective: Assesment: 75 yo male that is s/p TLIF at L1-L4 with PSF L1-L5 POD #3 Plan: -s/p TLIF/PSF: Pt with expected lower back pain, legs feel good -PT/OT-CPM -post op xrays look good -work on pain control with PO meds-pt states doing well with this with [place] will add Robaxin as valium made him too sleepy -call with any questions or concerns -Bowel protocol -Dispo- Home later today if pain under controlled, clears therapies -pt seen by Dr Muniz as well -brace when out of bed 07/25/16 16:52 Subjective: Patient in expected back pain. Denies leg pain. Up with PT some yesterday. No BM yet since surgery Objective: AFVSS CN 2-12 grossly intact +lt touch 5/5 BUE/BLE = Incision c/d/i Catheter Insertion Date: 07/25/16 - Physician Discussed Patient with : Flavio Patient Seen by : Flavio Neurosurgery Physical Exam - Vitals, I&O, Labs I and O 07/27/16 07/28/16 07/29/16 05:59 05:59 05:59 Intake Total 1700 633 350 Output Total 1155 1575 Balance 545 -942 350 Intake: Oral (ml) 1400 400 350 IV Intake (ml) 300 IV Infused (ml) 233 NS W/ 20 KCl/L 1,000 ml @ 233 75 mls/hr IV CONT EFREN Rx #:[id number] Output: Urine (ml) 900 1575 Catheter 400 Toilet 300 1275 Urinal 200 300 Wound Drainage (ml) 255 Posterior Back Daniel 255 Torres Other: Intake Quantity Yes Sufficient Number of Voids Catheter 1 Toilet 1 1 Urinal 1 1 Vital Signs Temp Pulse Resp BP Pulse Ox 37.0 C 89 16 107/64 94 07/28/16 07:08 07/28/16 07:08 07/28/16 07:08 07/28/16 07:08 07/28/16 07:08 Laboratory Results 07/26/16 04:49 07/26/16 04:49 ICD10 Worksheet Patient Problems: Problems Problem Status Onset Arthrodesis status Acute Lumbago Acute Lumbar radicular pain Acute
[2016-07-28] MEDS: METHOCARBAMOL 750 MG TAB PO PRN (10:25)
[2016-07-28] MEDS: oxyCODONE IR 5 MG TAB PO PRN ×2 (13:44→21:15)
[2016-07-28] MEDS: BISACODYL 10 MG SUPP PR PRN (16:10)
[2016-07-28 20:02] VITALS: RESP 16
[2016-07-28] MEDS: POLYETHYLENE GLYCOL 3350 17 GM PKT PO PRN (21:11)
[2016-07-28] MEDS: PRAVASTATIN SODIUM 40 MG TAB PO SCH (21:15)
[2016-07-28] MEDS: DIAZEPAM 5 MG TAB PO PRN (21:15)
[2016-07-29] MEDS: HYDROCODONE/APAP 10/325 TAB PO PRN (00:15)
[2016-07-29] MEDS: METHOCARBAMOL 750 MG TAB PO PRN (05:07)
[2016-07-29] MEDS: BISACODYL 10 MG SUPP PR PRN (05:07)
[2016-07-29] MEDS: oxyCODONE IR 5 MG TAB PO PRN ×2 (05:07→10:43)
[2016-07-29] MEDS ORDERED: METHYLNALTREXONE BROMIDE 12 MG/0.6 ML INJ SC ONE (07:29)
--- NOTE | 2016-07-29 07:39 | NEUSURGPN ---
Date of Surgery: 07/25/16 Post Op Day: 4 Assessment/Plan: Assesment: 75 yo male that is s/p TLIF at L1-L4 with PSF L1-L5 POD #4 Plan: -s/p TLIF/PSF: Pt with expected lower back pain, legs feel good -PT/OT-CPM -post op xrays look good -work on pain control with PO meds-pt states doing well with this with [place]/ Robaxin as valium made him too sleepy -call with any questions or concerns -Bowel protocol -added Relistor and fleets enema -Dispo- Home later today if pain under controlled, clears therapies and BM -pt seen by Dr Muniz as well -brace when out of bed Subjective: Awake and alert. NAD. Eating/drinking and voiding. No BM as of yet-working on this. No lugo/neck/chest/abd or gu complaints. No f/c/n/v/d. Objective: AFVSS/PERRLA/EOMI no droop CN 2-12 grossly intact +lt touch 5/5 BUE/BLE = CDI FRANCK removed already Neuro Check Frequency: per routine Urinary Catheter in Place: No Catheter Insertion Date: 07/25/16 - Physician Discussed Patient with : Flavio Patient Seen by : Flavio Neurosurgery Physical Exam - Vitals, I&O, Labs I and O 07/28/16 07/29/16 07/30/16 05:59 05:59 05:59 Intake Total 633 1250 Output Total 1575 Balance -942 1250 Intake: Oral (ml) 400 500 IV Infused (ml) 233 750 NS W/ 20 KCl/L 1,000 ml @ 233 750 75 mls/hr IV CONT EFREN Rx #:[id number] Output: Urine (ml) 1575 Toilet 1275 Urinal 300 Other: Intake Quantity Yes Sufficient Number of Voids Toilet 1 Urinal 1 Vital Signs Temp Pulse Resp BP Pulse Ox 37.3 C 77 16 104/58 L 90 L 07/29/16 04:00 07/29/16 04:00 07/29/16 04:00 07/29/16 04:00 07/29/16 04:00 Laboratory Results 07/26/16 04:49 07/26/16 04:49 ICD10 Worksheet Patient Problems: Problems Problem Status Onset Arthrodesis status Acute Lumbago Acute Lumbar radicular pain Acute - ICD10 Problem Qualifiers (1) Lumbago Qualifiers: Chronicity: C Back pain laterality: B Sciatica presence: S Sciatica laterality: S (2) Arthrodesis status (3) Lumbar radicular pain
[2016-07-29] MEDS: FAMOTIDINE 20 MG TAB PO SCH (07:57)
[2016-07-29] MEDS: SENNOSIDES/DOCUSATE SODIUM TAB PO SCH (07:57)
[2016-07-29] MEDS: ENOXAPARIN 40 MG/0.4 ML SYR SC SCH (07:57)
[2016-07-29 08:42] VITALS: BP 116/72; PULSE 93; TEMP 98.3; O2SAT 89
--- NOTE | 2016-07-29 11:35 | PDIAF ---
- Diagnosis Diagnosis: s/p L spine fusion Code Status: Full Code - Medication Management Discharge Medications: Medications to Continue on Transfer [place]-3 Fatty Acids [Fish Oil 1000 mg (*)] 1,000 mg PO DAILY 07/25/16 [Last Taken 07/15/16] Pravastatin Sodium 80 mg PO HS 07/25/16 [Last Taken 07/24/16] Diazepam [Valium 5 MG (*)] 5 mg PO QID PRN #30 tab 07/29/16 [Last Taken Unknown] Enoxaparin [Lovenox 40 MG (*)] 40 mg SC DAILY #7 syr 07/29/16 [Last Taken Unknown] HYDROcodone/APAP 10/325 [[place] 10/325 (*)] 1 - 2 tab PO Q6HRS PRN #60 tab [Last Taken Unknown] Methocarbamol [Robaxin 750 mg (*)] 750 mg PO Q6HRS PRN #60 tab 07/29/16 [Last Taken Unknown] Sennosides/Docusate Sodium [Senokot-S] 1 - 2 tab PO BID #30 tab 07/29/16 [Last Taken Unknown] oxyCODONE IR [Oxycodone Ir (*)] 5 mg PO Q3HRS PRN #60 tab 07/29/16 [Last Taken Unknown] Discharge Medications: Refer to the Discharge Home Medication list for PRN reason. - Orders Services needed: Registered Nurse, Physical Therapy, Occupational Therapy Oxygen: to keep O2 sat above 90% Diet Recommendation: no restrictions on diet Diet Texture: Regular Texture Diet Wound Care Instructions: wound check in [address] Castellon team - Follow Up Care Current Providers and Referrals: JD WEST MD [Other] Lucrecia Muniz MD [Medical Doctor] - (follow up in 2-3 weeks)
== END 2016-07-29 10:52 | disposition home or self-care (01) | DRG 460 ==
LOC: F2N 08:14 → F3N 18:13
PROVIDERS: ADMIT Neurological Surgery; ATTEND Neurological Surgery
PROC: 3E0U0GB Introduction of Recombinant Bone Morphogenetic Protein into Joints, Open Approach (ICD-10-PCS; principal; 2016-07-25 10:30)
PROC: 0SP004Z Removal of Internal Fixation Device from Lumbar Vertebral Joint, Open Approach (ICD-10-PCS; principal; 2016-07-25 10:30)
PROC: 00NY0ZZ Release Lumbar Spinal Cord, Open Approach (ICD-10-PCS; principal; 2016-07-25 10:30)
PROC: 0SG1071 Fusion of 2 or more Lumbar Vertebral Joints with Autologous Tissue Substitute, Posterior Approach, Posterior Column, Open Approach (ICD-10-PCS; principal; 2016-07-25 10:30)
PROC: 0SG10AJ Fusion of 2 or more Lumbar Vertebral Joints with Interbody Fusion Device, Posterior Approach, Anterior Column, Open Approach (ICD-10-PCS; principal; 2016-07-25 10:30)
PROC: 0SB20ZZ Excision of Lumbar Vertebral Disc, Open Approach (ICD-10-PCS; principal; 2016-07-25 10:30)
DX: M47.896 Other spondylosis, lumbar region (principal); M51.26 Other intervertebral disc displacement, lumbar region; M51.36 Other intervertebral disc degeneration, lumbar region; M48.07 Spinal stenosis, lumbosacral region
CPT/HCPCS: 97116-GP; 97161-GP; 97166-GO; 97530-GP; 97535-GO; C1713; G8978-GP-CJ; G8979-GP-CI; G8987-GO-CJ; G8988-GO-CI; G8989-GO-CI; J0690; J1100; J1170; J1650; J2212; J2250; J2370; J2405; J2704; J3010